=== PATIENT | female | born 1985 | race Caucasian/White ===

== ENCOUNTER 2016-08-26 20:12 | Emergency (ER) | payer OTHER ==
[~2016-08-26 20:12] MED LIST: BACTRIM DS TABL1 TA1 PO; CIPRO PO; CIPRO250 MG PO; EXCEDRIN GELTAB1 TA1 PO; KEFLEX500 M1 PO; KETOPROFEN PO; LORTAB 5/500 TA1 TA1 PO; MOTRIN600 M1 PO; NAPROSYN500 MG PO; NO MEDICATIONS; ORUDIS75 M1 DOB; PEPTO-BISM525 MG/15 PO; PHENERGAN25 MG PO; PRENATAL MULITV1 TAB PO; PYRIDIUM PO
== END 2016-08-26 22:35 | disposition home or self-care (01) ==
LOC: CED 20:12 → CFTX 20:12
DX: T63.301A Toxic effect of unspecified spider venom, accidental (unintentional), initial encounter (principal); L29.9 Pruritus, unspecified; F17.210 Nicotine dependence, cigarettes, uncomplicated; Z85.41 Personal history of malignant neoplasm of cervix uteri
CPT/HCPCS: 99282